=== PATIENT | female | born 1955 ===

== ENCOUNTER 2019-01-19 11:14 | Day surgery (SDC) | payer MEDICARE, MEDICAID ==
--- NOTE | 2019-01-14 15:05 | HP ---
AMENDED REPORT NOW INCLUDES DESIGNATED COSIGNER PREOPERATIVE HISTORY AND PHYSICAL: DATE OF ADMISSION/SURGERY: 01/19/19 DATE OF OFFICE VISIT/ENCOUNTER: 12/30/18 ATTENDING SURGEON: Ramya Culp MD * (DICTATED BY JEFF RODRIGUEZ) PROCEDURE: Right carpal tunnel release, right ulnar nerve decompression at the wrist and elbow. HISTORY OF PRESENT ILLNESS: This is a 63-year-old female with complaints of pain in her right upper extremity, her shoulder, elbow, hand. She has had several years of numbness and tingling in bilateral hands, worse on the right than on the left. Sometimes it involves the ulnar side of her hands, sometimes the median nerve innervated fingers and sometimes all of her fingers. She had a nerve conduction study done at [facility], which showed bilateral demyelinating median neuropathy at the wrist consistent with some [id number] carpal tunnel syndrome on the right. There is also a right ulnar neuropathy across the elbow. There was no specific injury that causes the numbness. 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 She does continue to do a lot of crafts and artwork. She has found it difficult to do the things that she enjoys secondary to these symptoms. She would like to proceed with surgical intervention at this time. She has history of cardiac disease with cardiac stent placement in the past. She also has thrombocytopenic purpura and associated renal disease. We will obtain clearance from her newspaper peddler, Dr. Dee, as well as her primary care doctor. The patient is seen for pain management in [place] and is currently on methadone HCl 10 mg daily. PAST MEDICAL HISTORY: 1. Hypertension. 2. High cholesterol. 3. Gout. 4. History of diabetes mellitus type 2. 5. Stage 3 renal disease. 6. Thrombocytopenic purpura. 7. Anxiety/depression. 8. Cardiac disease. 9. Chronic back pain. 10. History of MRSA approximately 10 years ago. PAST SURGICAL HISTORY: 1. Cardiac stent placement. 2. Bilateral cataract removal. 3. Tonsillectomy. 4. Laparoscopic gastric bypass. 5. Right total hip arthroplasty. 6. Left total knee arthroplasty with subsequent femur fracture and a revision total knee arthroplasty. 7. Kidney stone removal. CURRENT MEDICATIONS: 1. Acetaminophen extra strength 500 mg 2 tabs q.8 hours p.r.n. pain. 2. Allopurinol 100 mg daily. 3. Atorvastatin calcium 10 mg daily. 4. Bisoprolol fumarate 10 mg daily. 5. Bupropion hydrochloride ER XL 300 mg daily. 6. Buspirone HCl 10 mg daily. 7. Calcitriol 0.25 mcg daily. 8. Clopidogrel bisulfate 75 mg daily. 9. Cymbalta 60 mg twice a day. 10. Doxepin HCl 25 mg daily. 11. Fluticasone propionate 2 sprays each nostril daily as needed. 12. Furosemide 40 mg daily. 13. Lisinopril 10 mg daily. 14. Methadone HCl 10 mg daily. 15. Multivitamin daily. 16. Vitamin B12 daily. ALLERGIES: No known drug allergies. FAMILY MEDICAL HISTORY: Rheumatoid arthritis, heart disease, hypertension. SOCIAL HISTORY: The patient is disabled. 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 She has smoked on and off in her life, particularly when she was in her 50s for about 8 years, she was up to a half a pack per day. She denies recreational drug use. She drinks alcohol on rare occasion. REVIEW OF SYSTEMS: Negative for general, cephalic, cardiovascular, respiratory , GI, , other musculoskeletal, integumentary, endocrine, neurologic, and hematologic symptoms. Infectious Disease: Positive for history of MRSA about 10 years ago. Negative for hepatitis C, HIV. PHYSICAL EXAMINATION GENERAL: A well-developed, well-nourished 63-year-old female, in no acute distress. VITAL SIGNS: Height 5 feet 3 inches, weight 240 pounds. Blood pressure 146/78. HEENT: Normocephalic, atraumatic. Pupils are equal, round, and reactive to light and accommodation. Extraocular movements are intact. Throat is clear. NECK: Supple. No palpable lymph nodes. PULMONARY: Lungs are clear to auscultation bilaterally. No wheezes, rales, or rhonchi. CARDIOVASCULAR: Regular rate and rhythm. S1, S2. No murmurs, rubs, or gallops. No edema. ABDOMEN: Positive bowel sounds. Soft, nontender. NEUROLOGICAL: Alert and oriented x3. Cranial nerves II through XII are intact. MUSCULOSKELETAL: On exam of her right hand, she has a positive Tinel's sign at the ulnar nerve at the elbow and the median nerve at the wrist. She has weakness with finger and thumb abduction. She can make a full fist. She has full extension of the fingers. She has a positive median nerve compression test as well at the wrist and a positive Tinel's sign at the ulnar nerve at the wrist. IMAGING STUDIES: In the past, EMG nerve conduction study shows moderate-to- severe carpal tunnel syndrome on the right and ulnar neuropathy across the elbow. IMPRESSION: As above. PLAN: The patient is scheduled to undergo a right wrist carpal tunnel release and a right ulnar nerve decompression at the wrist and elbow with Dr. Culp on 01/19/19. She will return to the office 10 days postop for followup and suture removal. She is currently on methadone per the pain management clinic and she will be checking in with them for any additional medications for postoperative pain management. JEFF RODRIGUEZ [id number]/[facility] #: [id number] ROHAN
[~2019-01-19 11:14] MED LIST: Buffered Lidocaine 1% SYRIN* 1 ML/SYRINGE INTRADERM ONE; Lactated Ringers 1000 ML Bag* 1,000 ML IV SCH
[2019-01-19] MEDS ORDERED: ceFAZolin 2 GM PREMIX in ORs 2 GM/50 ML BAG ONE (11:46)
[2019-01-19] MEDS ORDERED: Lidocaine 1% INJ* 10 MG/ML 30 ML SDV ONE (13:22)
[2019-01-19] MEDS ORDERED: Bupivacaine 0.5% SDV PF* 30ML VIAL ONE (13:22)
[2019-01-19] MEDS ORDERED: Midazolam* 1 MG/ML 2 ML VIAL (2 MG) ONE ×2 (13:26→14:23)
[2019-01-19] MEDS ORDERED: fentaNYL* 50 MCG/ML 2 ML VIAL (100 MCG VIAL) ONE ×2 (13:26→13:51)
[2019-01-19] MEDS ORDERED: Propofol* 10 MG/ML 20 ML BTL ONE ×2 (13:28→14:11)
[2019-01-19] MEDS ORDERED: Naloxone* 0.4 MG/ML 1 ML VIAL IV PRN (14:16)
[2019-01-19] MEDS ORDERED: KETAMINE HCL* 50 MG/ML 10 ML VIAL ONE (14:20)
[2019-01-19 15:07] VITALS: BP 134/65
--- NOTE | 2019-01-19 22:52 | OP ---
DATE OF OPERATION: 01/19/19 - [facility] DATE OF : 57 SURGEON: Ramya Culp MD ASSEMBLER RUBBER FOOTWEAR: JEFF Garnica ANESTHESIA: Local MAC. PRE-OP DIAGNOSES: Right carpal tunnel syndrome and ulnar nerve compression of the elbow and wrist. POST-OP DIAGNOSES: Right carpal tunnel syndrome and ulnar nerve compression of the elbow and wrist. OPERATIVE PROCEDURE: Right carpal tunnel release and ulnar nerve decompression at the elbow and wrist. ESTIMATED BLOOD LOSS: Zero. TOURNIQUET TIME: About 45 minutes. INDICATIONS FOR PROCEDURE: Renee is a 63-year-old female who has numbness and tingling in her median and ulnar nerve distribution of her right hand. Clinically, she has a compression of the ulnar nerve at the elbow and the wrist and median nerve compression at the wrist. She presents for carpal tunnel release and ulnar nerve decompression at the elbow and wrist. DESCRIPTION OF PROCEDURE: The patient was brought to the operating room, was given a sedation anesthetic and a local infiltration of total 10 cc of 1% plain lidocaine in the palm of the right hand and 20 cc with 0.5% Marcaine plain at the medial aspect of the elbow with additional 10 cc of 1% plain lidocaine at the elbow. The skin of her right hand and forearm was prepped and draped in the usual sterile fashion. The hand and forearm were exsanguinated and the tourniquet elevated to 250 mmHg. A longitudinal incision was made in the palm in line with the ring finger and a zig-zag incision was made across the wrist creases. We dissected sharply down to the transverse carpal ligament. The ligament was divided sharply with a knife and then more proximally with the scissors. The ulnar nerve was then dissected out proximally and traced distally through Guyon's canal and completely released into the center of the palm on the hand. The wound was irrigated and the skin edges were reapproximated with 4 -0 nylon suture. Next, a curvilinear incision was made on the medial aspect of the elbow and dissected through the subcutaneous tissue down to the ulnar nerve at the cubital tunnel. We carefully dissected out through the cubital tunnel where it was significantly compressed. The FCU fascia deep and superficial was incised and the nerve was dissected out in the upper arm as well. The nerve was very enlarged. The wound was copiously irrigated with saline and subcutaneous tissue was closed with 2-0 Polysorb suture and the skin with skin tan. Both the wounds were dressed with Xeroform, 4x4, Webril, and Brandon wrap. The patient tolerated the procedure well and was brought to the recovery room in good condition. [id number]/[facility] #: [id number] MTDVernon
== END 2019-01-19 15:32 | disposition home or self-care (01) ==
LOC: OREAST 11:14
PROVIDERS: ATTEND Orthopaedic Surgery
DX: G56.01 Carpal tunnel syndrome, right upper limb (principal); G56.21 Lesion of ulnar nerve, right upper limb; E78.00 Pure hypercholesterolemia, unspecified; M10.9 Gout, unspecified; N18.3 Chronic kidney disease, stage 3 (moderate); I12.9 Hypertensive chronic kidney disease with stage 1 through stage 4 chronic kidney disease, or unspecified chronic kidney disease; D69.3 Immune thrombocytopenic purpura
CPT/HCPCS: J0690; J2250; J2704; J3010; J3490